=== PATIENT | female | born 1945 | race Caucasian/White ===

== ENCOUNTER 2017-07-06 08:51 | Emergency (ER) | payer OTHER ==
[~2017-07-06] VITALS: Ht 157.5 cm; Wt 89.5 kg
[~2017-07-06 08:51] MED LIST: ARTHROTEC 75 T1 EAC1 PO; BACTRIM DS TAB1 EACH PO; MULTIVITAMINS PO; PRINZIDE 20-251 EACH PO
[2017-07-06] MEDS ORDERED: PRINIVIL20 MG PO (09:04)
[2017-07-06] MEDS ORDERED: CHLORTHALIDONE25 MG PO (09:05)
[2017-07-06] MEDS ORDERED: NORVASC5 MG PO (09:05)
[2017-07-06 09:17] LABS: HEMATOCRIT 38.8 % (37.0-47.0); HEMOGLOBIN 12.8 gm/dL (12.0-15.0); MCH 27.3 pg (26.0-34.0); MCHC 33.1 g/dL (28.0-37.0); MCV 82.5 fL (80.0-100.0); MPV 7.5 fl. (7.2-11.1); NUCLEATED RBCS 0 /100WBC; PLATELET COUNT* 331 thou/uL (150-400); RDW-CV 13.9 % (10.5-14.5)
[2017-07-06 09:32] LABS: ANION GAP 10 mmol/L (7-16); BUN 24 mg/dL (7-18); CALCIUM 9.3 mg/dL (8.5-10.1); CHLORIDE 97 mmol/L (98-107); CO2 27 mmol/L (21-32); CREATININE 0.8 mg/dL (0.6-1.3); GLUCOSE 120 mg/dL (70-99); POTASSIUM 4.1 mmol/L (3.5-5.1); SODIUM 134 mmol/L (136-145)
[2017-07-06 09:37] LABS: ALKALINE PHOSPHATASE 100 U/L (46-116); NT-PRO BRAIN NAT PEPTIDE 231 pg/mL (<300); SGOT 27 U/L (15-37); SGPT 25 U/L (30-65); TOTAL BILIRUBIN 0.3 mg/dL (<0.1-1.0); TOTAL PROTEIN 8.1 g/dL (6.4-8.2); TROPONIN-I LEVEL <0.06 ng/mL (<0.06)
[2017-07-06 09:43] LABS: APTT 27.5 Seconds (25.0-31.3); PROTIME 9.9 Seconds (9.20-11.50)
[2017-07-06 10:26] LABS: ABSOLUTE EOSINOPHILS 0.4 thou/uL (0.0-0.7); ABSOLUTE LYMPHOCYTES 0.6 thou/uL (0.8-5.3); ABSOLUTE MONOCYTES 0.9 thou/uL (0.0-1.2); ABSOLUTE NEUTROPHILS 7.1 thou/uL (1.6-8.1); ATYPICAL LYMPHS 2 %; PLATELET ESTIMATE ADEQUATE
[2017-07-06 11:06] VITALS: BP 153/82
--- NOTE | 2017-07-06 12:15 | EKG ---
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: Omer PALMER : 1945 Requested By: Moshe Montiel Order Number: [id number] MD: Rishi Marshall Measurements Intervals [place] Rate: 89 P: 17 VA: 173 QRS: -5 QRSD: 109 T: 89 QT: 383 QTc: 467 Interpretive Statements Sinus rhythm Probable left atrial enlargement Borderline repolarization abnormality Compared to ECG 08/12/2007 11:11:10 Fusion complex(es) no longer present Electronically Signed On 07-06-2017 12:15:07 WELDER [employer] G[employer] by Rishi Marshall [email or web address] <ELECTRONICALLY SIGNED> By: Rishi Marshall MD, [facility] 07/06/17 1215 1 09 Rishi Marshall MD, [facility] /EPI
== END 2017-07-06 11:08 | disposition home or self-care (01) ==
LOC: M.ERS 08:51
PROVIDERS: Family Medicine
DX: I10 Essential (primary) hypertension (principal); Z98.890 Other specified postprocedural states; Z88.0 Allergy status to penicillin

== ENCOUNTER 2017-10-26 17:32 | Inpatient (IN) | payer OTHER ==
[~2017-10-26] VITALS: Ht 154.9 cm; Wt 92.5 kg
--- NOTE | ~2017-10-26 | PROC ---
[address] [place] [address] PROCEDURE REPORT Name: KELLIE PARDO Room: [address] IN .R.#: [id number] Admission: 10/26/17 Attend Phys: Fernie Parkinson, Discharge: 10/28/17 Date of : 41 Report #: [id number] THIS REPORT FOR: //name// For GI report, please see the Provation report in Perceptive 7 content. By: 0700Medical Records Staff FLACO /JER
[~2017-10-26 17:32] MED LIST changes: +CHLORTHALIDONE25 MG PO; +NORVASC5 MG PO; +PRINIVIL20 MG PO
[2017-10-26 17:35] VITALS: BP 189/100
[2017-10-26 18:27] LABS: HEMATOCRIT 37.8 % (37.0-47.0); HEMOGLOBIN 12.4 gm/dL (12.0-15.0); MCH 27.1 pg (26.0-34.0); MCHC 32.7 g/dL (28.0-37.0); MCV 83.1 fL (80.0-100.0); MPV 8.1 fl. (7.2-11.1); NUCLEATED RBCS 0 /100WBC; PLATELET COUNT* 309 thou/uL (150-400); RBC 4.55 mil/uL (4.20-5.00); RDW-CV 13.6 % (10.5-14.5); WBC 11.6 thou/uL (4.0-11.0)
[2017-10-26 18:31] LABS: ANION GAP 11 mmol/L (7-16); BUN 23 mg/dL (7-18); CALCIUM 9.4 mg/dL (8.5-10.1); CHLORIDE 100 mmol/L (98-107); CO2 26 mmol/L (21-32); CREATININE 0.8 mg/dL (0.6-1.3); GLUCOSE 121 mg/dL (70-99); POTASSIUM 3.7 mmol/L (3.5-5.1); SODIUM 137 mmol/L (136-145)
[2017-10-26 18:38] LABS: APTT 25.9 Seconds (25.0-31.3); PROTIME 10.1 Seconds (9.20-11.50)
[2017-10-26 18:43] LABS: ALBUMIN 3.9 g/dL (3.4-5.0); ALKALINE PHOSPHATASE 80 U/L (46-116); SGOT 20 U/L (15-37); SGPT 19 U/L (30-65); TOTAL BILIRUBIN 0.4 mg/dL (<0.1-1.0); TOTAL PROTEIN 7.7 g/dL (6.4-8.2); TROPONIN-I LEVEL <0.06 ng/mL (<0.06)
[2017-10-26 18:52] LABS: ABSOLUTE LYMPHOCYTES 0.5 thou/uL (0.8-5.3); ABSOLUTE MONOCYTES 0.1 thou/uL (0.0-1.2); PLATELET ESTIMATE ADEQUATE
[2017-10-26 22:23] VITALS: BP 146/77
[2017-10-26 22:35] VITALS: BP 148/81
[2017-10-27 04:00] VITALS: BP 102/45
[2017-10-27 05:04] LABS: HEMATOCRIT 33.2 % (37.0-47.0); HEMOGLOBIN 10.9 gm/dL (12.0-15.0); MCH 27.3 pg (26.0-34.0); MCHC 32.9 g/dL (28.0-37.0); MCV 82.8 fL (80.0-100.0); RBC 4.01 mil/uL (4.20-5.00); RDW-CV 14.1 % (10.5-14.5); WBC 8.4 thou/uL (4.0-11.0)
[2017-10-27 05:32] LABS: ALBUMIN 3.1 g/dL (3.4-5.0); CALCIUM 8.5 mg/dL (8.5-10.1); CREATININE 0.8 mg/dL (0.6-1.3); POTASSIUM 3.7 mmol/L (3.5-5.1); TOTAL BILIRUBIN 0.4 mg/dL (<0.1-1.0)
[2017-10-27 07:30] VITALS: BP 137/58
[2017-10-27 09:21] LABS: URINE BILIRUBIN NEGATIVE (Negative); URINE BLOOD NEGATIVE (Negative); URINE CLARITY CLEAR; URINE COLOR YELLOW; URINE GLUCOSE-RANDOM NEGATIVE (Negative); URINE KETONES 1+ (Negative); URINE LEUKOCYTES-REFLEX NEGATIVE (Negative); URINE NITRITE-REFLEX NEGATIVE (Negative); URINE PROTEIN TRACE (Negative); URINE UROBILINOGEN 0.2 E.U./dl (0.2-1.0)
[2017-10-27 12:00] VITALS: BP 125/62
--- NOTE | 2017-10-27 15:55 | EKG ---
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 Block: Omer MCGARRY : 1945 Requested By: Tina Hanson Order Number: [id number] MD: Jesus Mosqueda Measurements Intervals [place] Rate: 95 P: 39 NM: 178 QRS: -9 QRSD: 103 T: 45 QT: 352 QTc: 443 Interpretive Statements Sinus rhythm Premature atrial complex Probable left atrial enlargement Compared to ECG 07/06/2017 09:12:01 Atrial premature complex(es) now present Electronically Signed On 10-27-2017 15:55:27 CDT by Jesus Mosqueda [email or web address] <ELECTRONICALLY SIGNED> By: Jesus Mosqueda MD, FACC 10/27/17 1555 1740 1740 Jesus Mosqueda MD, [facility] /EPI
[2017-10-27 16:00] VITALS: BP 143/69
[2017-10-27 19:58] VITALS: BP 158/60
[2017-10-28 00:25] VITALS: BP 141/59
[2017-10-28 04:17] VITALS: BP 160/76
[2017-10-28 04:42] VITALS: BP 160/76
[2017-10-28 05:43] LABS: HEMATOCRIT 33.2 % (37.0-47.0); HEMOGLOBIN 10.9 gm/dL (12.0-15.0); MCH 27.5 pg (26.0-34.0); MCHC 32.8 g/dL (28.0-37.0); MPV 8.3 fl. (7.2-11.1); RBC 3.95 mil/uL (4.20-5.00); RDW-CV 14.1 % (10.5-14.5); WBC 8.2 thou/uL (4.0-11.0)
[2017-10-28 06:03] LABS: LIPASE 134 U/L (73-393); TRIGLYCERIDE 70 mg/dL (<150)
[2017-10-28 06:07] LABS: CALCIUM 8.1 mg/dL (8.5-10.1); CREATININE 0.8 mg/dL (0.6-1.3); MAGNESIUM 1.7 mg/dL (1.8-2.4); POTASSIUM 3.3 mmol/L (3.5-5.1); TOTAL BILIRUBIN 0.6 mg/dL (<0.1-1.0); TOTAL PROTEIN 6.1 g/dL (6.4-8.2)
--- NOTE | 2017-10-28 08:22 | CON ---
[address] [address] CONSULTATION Name: KELLIE PARDO Room: [address] IN .R.#: [id number] Admission: 10/26/17 Attend Phys: Fernie Parkinson, Discharge: Date of : 41 Report #: [id number] THIS REPORT FOR: //name// CC: Nadira Parkinson DATE OF SERVICE: 10/27/2017 REASON FOR CONSULT: Hematemesis, evidence of gastric outlet obstruction and elevated lipase. HISTORY OF PRESENT ILLNESS: This is a 72-year-old female with no previous history of pancreatitis who presents with epigastric pain and persistent nausea and vomiting, which started night. The patient reports that she felt that there was blood in her emesis, which prompted her to come to hospital. She has had history of H. pylori in the past and has been treated for. She takes diclofenac as part of her meds. She also reports that she is pretty regular and has daily bowel movement. She has never had any upper and lower endoscopy in the past. She has not had any bowel movements since Saturday. PAST MEDICAL HISTORY: Significant for a history of hypothyroidism, hypertension, gastric bypass surgery, appendectomy, history of NSAID use. ALLERGIES: SIGNIFICANT TO PENICILLIN. MEDICATIONS: Please refer to hospital MAR. SOCIAL HISTORY: The patient denies tobacco or alcohol use. She is . FAMILY HISTORY: Negative for GI malignancy. PHYSICAL EXAMINATION: VITAL SIGNS: Reveals blood pressure of 137/58, respirations 17, pulse 71, temperature 99.1. LUNGS: Clear. CARDIOVASCULAR: Regular. ABDOMEN: Soft, mildly tender to palpation in the epigastric region. Bowel sounds are positive. NG tube in place and attached to the canister wall. NEUROLOGIC: The patient is alert and oriented x 3. LABORATORY DATA: Reveal sodium of 140, potassium 3.7, BUN is 21, creatinine 0.8, glucose 94. AST 16, ALT 16, alkaline phosphatase 65, total bilirubin is 0.4. Lipase is 2125. Albumin is 3.1. WBC is 8.4 with hemoglobin of 10.9 and platelet of 277. IMAGING: CT of abdomen and pelvis was obtained [place]. [place] [address] CONSULTATION Name: KELLIE PARDO Omer Room: [address] IN [facility]#: [id number] Admission: 10/26/17 Attend Phys: Fernie Parkinson, Discharge: Date of : 41 Report #: [id number] significant for distended stomach and retention of fluid in the stomach and distal esophagus. Evidence of previous gastric surgery. There was also cholelithiasis without evidence of cholecystitis and diverticulosis without evidence of diverticulitis. There is a fat containing infraumbilical midline hernia with no evidence of bowel herniation. ASSESSMENT AND PLAN: The patient with pancreatitis of unknown etiology who also has had gastric distention and retention. Nasogastric initially has pulled out 800 mL of dark color coffee-ground aspirate. We will check lipase and consider upper endoscopy tomorrow. Meanwhile, we will continue nasogastric to intermittent suction and allow the patient to have ice chips. I will check lipase in a.m. <ELECTRONICALLY SIGNED> By: Alyec Negron MD 10/28/17 0822 0930 2230Alyce Negron MD /nt
[2017-10-28 09:15] VITALS: BP 166/69
[2017-10-28 12:09] VITALS: BP 150/98
[2017-10-28] MEDS ORDERED: REGLAN 5 MG TAB5 MG PO (14:11)
[2017-10-28 14:49] VITALS: BP 150/98
== END 2017-10-28 15:30 | disposition home or self-care (01) | DRG 377 ==
LOC: M.ERS 17:32 → M.TBA-ER 21:02 → M.2W 21:02
PROVIDERS: Emergency Medicine; Internal Medicine Gastroenterology; Personal Emergency Response Attendant; ADMIT Family Medicine
PROC: 0DJ08ZZ Inspection of Upper Intestinal Tract, Via Natural or Artificial Opening Endoscopic (ICD-10-PCS; principal; 2017-10-28)
DX: K92.2 Gastrointestinal hemorrhage, unspecified (principal); K85.90 Acute pancreatitis without necrosis or infection, unspecified; E03.9 Hypothyroidism, unspecified; M19.90 Unspecified osteoarthritis, unspecified site; T39.395A Adverse effect of other nonsteroidal anti-inflammatory drugs [NSAID], initial encounter; I10 Essential (primary) hypertension; K80.20 Calculus of gallbladder without cholecystitis without obstruction; K44.9 Diaphragmatic hernia without obstruction or gangrene; D64.9 Anemia, unspecified; Z90.49 Acquired absence of other specified parts of digestive tract; Z98.84 Bariatric surgery status; Z88.0 Allergy status to penicillin; Z79.899 Other long term (current) drug therapy; Y92.89 Other specified places as the place of occurrence of the external cause

== ENCOUNTER → 2018-04-09 | Outpatient (CLI) | payer OTHER ==
[~2018-04-09] MED LIST changes: +REGLAN 5 MG TAB5 MG PO
== END ==
LOC: M.ULTRA 14:07
DX: M71.22 Synovial cyst of popliteal space [Baker], left knee (principal); M79.89 Other specified soft tissue disorders

== ENCOUNTER 2018-06-16 08:05 | Inpatient (IN) | payer OTHER ==
[2018-06-05 09:04] LABS: ABSOLUTE BASOPHILS 0.1 thou/uL (0.0-0.2); ABSOLUTE EOSINOPHILS 0.2 thou/uL (0.0-0.7); ABSOLUTE LYMPHOCYTES 0.9 thou/uL (0.8-5.3); ABSOLUTE MONOCYTES 0.3 thou/uL (0.0-1.2); ABSOLUTE NEUTROPHILS 4.7 thou/uL (1.6-8.1); EOSINOPHILS 3.6 %; HEMATOCRIT 38.1 % (37.0-47.0); HEMOGLOBIN 12.3 gm/dL (12.0-15.0); LYMPHOCYTES 14.9 %; MCH 26.8 pg (26.0-34.0); MCHC 32.3 g/dL (28.0-37.0); MCV 82.9 fL (80.0-100.0); MONOCYTES 5.5 %; MPV 7.7 fl. (7.2-11.1); NUCLEATED RBCS 0 /100WBC; PLATELET COUNT* 333 thou/uL (150-400); RDW-CV 14.3 % (10.5-14.5); WBC 6.2 thou/uL (4.0-11.0)
[2018-06-05 09:10] LABS: APTT 26.4 Seconds (25.0-31.3); PROTIME 10.1 Seconds (9.20-11.50)
[2018-06-05 09:15] LABS: CALCIUM 9.3 mg/dL (8.5-10.1); CREATININE 0.9 mg/dL (0.6-1.3); POTASSIUM 4.1 mmol/L (3.5-5.1); TOTAL BILIRUBIN 0.4 mg/dL (<0.1-1.0); TOTAL PROTEIN 7.7 g/dL (6.4-8.2)
[2018-06-05 11:10] LABS: ESR (SEDRATE) 10 mm/hr (0-30)
--- NOTE | 2018-06-05 13:47 | EKG ---
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
[2018-06-05 21:06] LABS: GLYCOHEMOGLOBIN (HGB A1C) 5.5 % (4.8-5.6)
[~2018-06-16] VITALS: Ht 157.5 cm; Wt 88.0 kg
[~2018-06-16 08:05] MED LIST changes: +DICLOFENAC SODI75 MG PO; +SYNTHROID25 MC1 PO
[2018-06-16 08:35] VITALS: BP 141/71
[2018-06-16 15:11] VITALS: BP 132/65
[2018-06-16 16:23] LABS: HEMATOCRIT 33.2 % (37.0-47.0); HEMOGLOBIN 10.5 gm/dL (12.0-15.0); MCH 26.3 pg (26.0-34.0); MCHC 31.8 g/dL (28.0-37.0); MCV 82.8 fL (80.0-100.0); MPV 7.7 fl. (7.2-11.1); NUCLEATED RBCS 0 /100WBC; PLATELET COUNT* 308 thou/uL (150-400); RDW-CV 14.7 % (10.5-14.5); WBC 13.6 thou/uL (4.0-11.0)
[2018-06-16 16:33] LABS: ALBUMIN 3.3 g/dL (3.4-5.0); CALCIUM 8.7 mg/dL (8.5-10.1); CREATININE 0.9 mg/dL (0.6-1.3); MAGNESIUM 1.7 mg/dL (1.8-2.4); POTASSIUM 3.8 mmol/L (3.5-5.1); TOTAL BILIRUBIN 0.4 mg/dL (<0.1-1.0); TOTAL PROTEIN 6.7 g/dL (6.4-8.2)
[2018-06-16 16:46] LABS: ABSOLUTE LYMPHOCYTES 0.3 thou/uL (0.8-5.3); ABSOLUTE MONOCYTES 0.1 thou/uL (0.0-1.2); ABSOLUTE NEUTROPHILS 13.2 thou/uL (1.6-8.1); ATYPICAL LYMPHS 1 %; PLATELET ESTIMATE ADEQUATE
[2018-06-16 17:19] VITALS: BP 127/66
--- NOTE | 2018-06-16 18:47 | NUR ---
PT ARRIVED BY BED TO UNIT @ 1435. DENIES PAIN. INDICATED NAUSEA AND GIVEN IV ZOFRAN PER ORDER. PT HAVE PROVENA DRESSING IN PLACE ON LEFT KNEE-NO DRAINAGE NOTED. BELLA HOSE ON BILAT. POLAR PACK IN PLACE. SCDS IN USE. HOB ELEVATED. NIETO CATHETER IN PLACE. OXYGEN @ 2 L/NC. IVF INFUSING @ 75 MLS/HR. PT ABLE TO TOLERATE FULL LIQUIDS FOR DINNER. HOURLY ROUNDS MAINTAINED. WILL USE CALL LIGHT FOR ASSISTANCE.
[2018-06-16 20:30] VITALS: BP 135/78
[2018-06-17 04:00] VITALS: BP 135/78
[2018-06-17 04:30] LABS: HEMATOCRIT 27.3 % (37.0-47.0)
--- NOTE | 2018-06-17 06:26 | NUR ---
PATIENT HAS SLEPT WELL THROUGHOUT THE NIGHT. VSS ON 2L 02 VIA NASAL CANNULA. PAIN CONTROLLED WITH ORAL PAIN MEDICATION AND CHARTED. NIETO CATHETER TO DEPENDENT DRAINAGE WITH YELLOW URINE OUTPUT. DRESSING TO LEFT LEG IS C/D/I, POLAR CARE AND SCD'S IN PLACE. PROVENA WOUND VAC IS IN PLACE WITH MINIMAL DRAINAGE. OK WITH FROM [facility]THO TO START CPM TODAY AFTER PHYSICAL THERAPY AND ADJUST PATIENT IS ABLE TO TOLERATE. PATIENT INSTRUCTED TO USE CALL LIGHT WHEN NEEDING ASSISTANCE. HOURLY ROUNDS MADE. WILL CONTINUE WITH PLAN OF CARE AND NURSING TO MONITOR.
[2018-06-17 08:15] VITALS: BP 98/53
--- NOTE | 2018-06-17 15:30 | NUR ---
SPOKE WITH PT.AND SON,YE,AT BEDSIDE. PT.LIVES ALONE. SHE IS NORMALLY INDEPENDENT. SHE HAS HAD A LOT OF PAIN IN L LEG AND KNEE SINCE APR. SHE HAS STARTED USING A WC AT HOME DUE TO TOO PAINFUL TO WALK. DURING SURGERY THEY FOUND A FX TIBIA-CHRONIC AND SHE ALSO HAD AN ORIF OF HER L TIBIA. SHE ALSO HAS A WALKER AND RAMP. SON AND HIS PLAN TO STAY WITH PT.NIGHT AND DAY FOR THE FIRST 3-4 DAYS. SHE WOULD LIKE TO USE [facility] FOR HOME HEALTH. SHE THINKS SHE USED THEM LAST TIME. CM WILL MAKE REFERRAL.
[2018-06-17 15:36] VITALS: BP 101/43
--- NOTE | 2018-06-17 17:08 | NUR ---
PT REMAINED ALERT AND ORIENTED THIS SHIFT. PT WORKED WITH THERAPY AND WAS HAVING DIFFICULTY WITH UNDERSTANDING TOE TOUCH WEIGHT BEARING. NIETO REMOVED. PT CAPNO REMOVED. PT WORKED WITH CPM MACHINE. PAIN MEDS GIVEN ORDERED. FALL RISK PRECAUTIONS IN PLACE. HOURLY ROUNDING COMPLETED. WILL CONTINUE TO MONITOR.
[2018-06-17 20:00] VITALS: BP 112/54
--- NOTE | 2018-06-18 03:40 | NUR ---
PATIENT NOT VOIDING. PATIENT BLADDER SCANNED AND SHOWED ONLY 188ML OF URINE IN BLADDER AND PATIENT HAD NO URGE TO URINATE. PATIENT GIVEN 250ML NORMAL SALINE BOLUS AT THIS TIME. WILL CONTINUE TO MONITOR.
[2018-06-18 04:06] LABS: HEMATOCRIT 23.2 % (37.0-47.0); HEMOGLOBIN 7.9 gm/dL (12.0-15.0); MCHC 34.1 g/dL (28.0-37.0); MCV 82.2 fL (80.0-100.0); MPV 7.9 fl. (7.2-11.1); RBC 2.83 mil/uL (4.20-5.00); RDW-CV 14.6 % (10.5-14.5); WBC 8.4 thou/uL (4.0-11.0)
[2018-06-18 04:25] LABS: ALBUMIN 2.6 g/dL (3.4-5.0); CALCIUM 7.9 mg/dL (8.5-10.1); CREATININE 1.4 mg/dL (0.6-1.3); POTASSIUM 4.5 mmol/L (3.5-5.1); TOTAL BILIRUBIN 0.3 mg/dL (<0.1-1.0); TOTAL PROTEIN 5.4 g/dL (6.4-8.2)
[2018-06-18 04:46] LABS: % SATURATION 7 % (20-39); IRON 10 ug/dL (50-175)
--- NOTE | 2018-06-18 07:02 | NUR ---
PATIENT HAS SLEPT WELL THROUGHOUT THE NIGHT. VSS ON RA. PAIN WELL CONTROLLED. MEDICATIONS GIVEN ORDERED AND CHARTED. DRESSING TO LEFT LEG IS C/D/I, BELLA DE GUZMAN, [facility] CARE, SCD'S IN PLACE. PROVENA WOUND VAC IN PLACE WITH MINIMAL DRAINAGE. PATIENT UP WITH ASSIST X 1-2 WITH [facility] [facility] [place] PATIENT DID URINATE 250CC OF YELLOW URINE THIS AM. IV IN LEFT WRIST-SL. PATIENT INSTRUCTED TO USE CALL LIGHT WHEN NEEDING ASSISTANCE. HOURLY ROUNDS MADE. WILL CONTINUE WITH PLAN OF CARE AND NURSING TO MONITOR.
--- NOTE | 2018-06-18 07:07 | OP ---
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 POSTOPERATIVE DIAGNOSES: 1. 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 2. Proximal tibial shaft fracture, closed and likely chronic. PROCEDURE: 1. Left total knee arthroplasty with intramedullary stems, complex. 2. Open reduction and internal fixation of left tibia shaft fracture. SURGEON: Jeff Tee DO JAPANESE TUTOR: Alexander Lamas DO SECOND MEDICAL FRONT DESK SPECIALIST: Mando Flores DO ESTIMATED BLOOD LOSS: 200 mL. TOURNIQUET TIME: Approximately 90 total minutes. ANTIBIOTICS: Clindamycin 600 mg IV preoperatively. ORTHOPEDIC IMPLANTS: Maxwell revision total knee system with stems. 1. Size E femur with 18 mm x 130 mm femoral stem. 2. Size 5 tibial base plate with 14 mm x 130 mm tibial stem, 29 mm patella, 12 mm highly constrained posterior stabilized polyethylene spacer. 3. Two bags of Palacos bone cement with gentamicin. 4. A 6-hole 3.5 recon plate with appropriate length screws, both locking and nonlocking. ANESTHESIA: General. DRAINS: None. SPECIMEN REMOVED: [place] [address] OPERATIVE REPORT Name: KELLIE PARDO Room: [address] IN [facility].#: [id number] Admission: 06/16/18 Attend Phys: Monster Natarajan Discharge: Date of : 41 Report #: [id number] CONDITION: The patient is stable to PACU. INDICATIONS: The patient is a very pleasant 73-year-old female seen in my clinic regarding left knee pain she had for quite some time. She unfortunately failed conservative treatment. X-rays were obtained demonstrating severe end-stage degenerative joint disease with severe valgus deformity. This was somewhat correctable in clinic. She had x-rays done in the Emergency Room on 04/09/2018 confirming again severe DJD. Due to the severity of her arthritis as well as the pain interfering with her quality of life and activities of daily living, I have recommended left total knee arthroplasty with intramedullary stems due to her valgus deformity. I discussed procedure, risks, benefits, complications, indications in detail with her. Risks discussed include, but not limited to, infection, neurovascular injury, continued or worsened pain, need for further surgery, DVT, PE and anesthesia complications. She expressed understanding and wished to proceed with surgery. DESCRIPTION OF PROCEDURE: After consent was obtained, the patient was taken to the operative suite and placed in the supine position on the operating room table. She was given benefit of general anesthesia. A well-padded tourniquet was placed on left upper thigh. Left leg was sterilely prepped and draped in usual fashion. Preop timeout was obtained to confirm the correct patient, procedure and operative site. Surgery began with elevation of the tourniquet to 300 mmHg. Standard anterior knee midline incision was made. Sharp dissection was taken down to the level of capsule. A new knife was used and a medial parapatellar arthrotomy was performed. She had a normal appearing joint effusion. She did have severe eburnation throughout all 3 compartments, most severe in the lateral compartment with osteophytes throughout. We then began to prepare our femur. A femoral drill was used to open the femoral canal. T-handle and intramedullary mat were placed measuring a 6-degree valgus cut. The distal femoral cut was made through the captured block. This cut was fairly minimal. Attention was then turned to the tibia. It was at this time, we noticed some excess play in the proximal tibia. This was around the proximal shaft region and it appeared that there was a fracture in this area. We did not ever feel anything that was concerning for fracture. I went ahead and dissected down medially over the area of play and it was noted she did have a transverse fracture in this area. This was quite scarred in and there was a callus tissue over it. There was no hematoma in this area. Apparently, this was a chronic injury unfortunately. We had already made our femur cuts and elected to proceed with ORIF of this as well as completion of the total knee. We went ahead and placed a 3.5 recon small frag plate over the fracture site for stabilization. Two cortical screws were placed of appropriate length. This did compress the fracture site. We then placed 2 more locking screws, both proximal and distal to this. This did hold our fracture nicely. I went ahead and brought the C-arm in at this time to confirm this was what we were dealing with. Again, on C-arm, it was apparent this was a chronic fracture [address] [address] OPERATIVE REPORT Name: KELLIE PARDO Room: [address]#: [id number] Admission: 06/16/18 Attend Phys: Monster Natarajan Discharge: Date of : 41 Report #: [id number] as there was some callus around this area. We then went ahead and prepared our tibia. The intramedullary guide was placed. Reaming was progressed up to a size 14. This was quite solid. We then used the cutting guide measuring a 10 mm cut off the high medial side. This just barely ____ and I did not feel we ____ at this time. Once this was removed, the knee was taken through extension, 10 block was used to ensure adequate resection. The knee was again flexed. AP sizer was placed on distal femur. This measured a size E. The size E 4-in-1 cutting block was then utilized in approximately 5 degrees of external rotation, the cuts were made. The proximal tibia was again exposed and with our size 14 reamer, we measured the proximal tibia to be a size 5. Size 5 tibial trial was then pinned in place at appropriate rotation. Opening drill was utilized. We went ahead with similar trial tibia at this point, this was impacted in place. Attention was then returned to the femur and sequential reaming was performed up to size 18. Box cut was made. The femoral trial was composed size E with 18 x 130 mm stem. This was impacted in place, had good fit. We went ahead and trial reduced with a size 12 spacer. This gave us great range of motion. She was actually fairly well balanced. Her MCL was still intact and her range of motion was full with this construct. The patella was then everted. Posterior patellar cut was made using freehand technique, this measured size 29. Three peg holes were drilled, size 29 button was placed. Knee was taken through range of motion and the patella did track well. I went ahead and obtained intraoperative x-ray at this time with the trials in and noting good position of all hardware and good reduction of the fracture. The trial components were then removed. The knee was thoroughly irrigated with pulsatile lavage, dried with a clean lap sponge. Cement was mixed. Final components were constructed on the backtable and then cement was placed on the components and bone. These were impacted in place. Excess cement was removed. Size 12 spacer was placed. Knee was taken through extension. Axial compression was applied until the cement hardened. Once the cement hardened, trial reduction was performed and a final size 12 spacer was chosen. This was highly constrained and the final size 12 spacer was placed on a clean tibial tray, locked in place with locking screw at appropriate torque. Knee was taken through final range of motion. She had good flexion, extension with good stability with varus valgus testing, good patellar tracking. The fracture did appear to be solidly fixated at this point. The wound was then thoroughly irrigated with pulsatile lavage. Ortho cocktail was injected. Tourniquet let to deflate. Hemostasis achieved with electrocautery and direct pressure. Capsule tissue was then closed with #1 Vicryl in a [id number] fashion. Subcutaneous tissue was closed with a 2-0 Vicryl in interrupted fashion followed by ger on the skin with a Prevena VAC dressing. She was then transferred to the recovery room in stable condition. She did tolerate the procedure well without complications. All needle and sponge counts were correct x 2 at the end of the procedure. I did update her family intraoperatively of the finding of the fracture. She [address] [address] OPERATIVE REPORT Name: KELLIE PARDO Room: [address] IN M.R.#: [id number] Admission: 06/16/18 Attend Phys: Monster Natarajan Discharge: Date of : 41 Report #: [id number] will be admitted postop for pain control. Unfortunately, she will have to be toe touch weightbearing with gentle range of motion of the knee should be fine. We will give appropriate DVT prophylaxis and analgesia p.r.n. I expect greater than 2 midnights' stay. <ELECTRONICALLY SIGNED> By: Adria Tucker DO 06/18/18 0707 1335 1515Dageno Tee DO /cr
[2018-06-18 09:00] VITALS: BP 118/50
--- NOTE | 2018-06-18 16:50 | NUR ---
ASSUMED CARE OF PATIENT AT APPROX 0720. ALERT AND OREINTED X4. ASSESSMENT COMPLETED AND CHARTED. VSS ON ROOM AIR. FLUIDS AND ANTIBIOTICS INFUSED ORDERED, SALINE LOCKED AFTERWARDS. NO COMPLAINTS OF SOA THIS SHIFT. PAIN AND NAUSEA HAVE BEEN MANAGED WITH MEDICATIONS. PATIENT HAS NOT HAS A BM IN A FEW DAYS AND IS CONCERNED. NEW MEDICATIONS ADDED TO STIMULATE BM BUT NO SUCCESS. PATIENT WOORKED WELL WITH THERAPIES AND IS PROGRESSING TOWARD GOALS. BULKY DRESSING AND HEMAVAC REMOVED THIS AM. FALL PRECAUTIONS IN PLACE, CALL LIGHT WITHIN REACH, NURSING WILL CONTINUE TO MONITOR.
--- NOTE | 2018-06-18 17:16 | NUR ---
[facility] CAME TO VISIT PT.TODAY. SHE SAID THEY CAN ACCEPT PT.TO A SKILLED BED PENDING INSURANCE AUTHORIZAION. PT.AWARE.
[2018-06-18 20:30] VITALS: BP 114/56
[2018-06-18 23:54] VITALS: BP 93/44
[2018-06-19 04:33] LABS: HEMATOCRIT 24.1 % (37.0-47.0); HEMOGLOBIN 7.9 gm/dL (12.0-15.0); MCH 27.2 pg (26.0-34.0); MCHC 32.9 g/dL (28.0-37.0); MCV 82.8 fL (80.0-100.0); MPV 8.1 fl. (7.2-11.1); RBC 2.91 mil/uL (4.20-5.00); RDW-CV 14.4 % (10.5-14.5); WBC 13.6 thou/uL (4.0-11.0)
[2018-06-19 04:37] LABS: CALCIUM 7.9 mg/dL (8.5-10.1); CREATININE 1.2 mg/dL (0.6-1.3); POTASSIUM 4.6 mmol/L (3.5-5.1)
--- NOTE | 2018-06-19 05:08 | NUR ---
PATIENT HAS SLEPT WELL THROUGHOUT THE NIGHT. VSS ON RA. PAIN WELL CONTROLLED. MEDICATIONS GIVEN ORDERED AND CHARTED. PATIENT [place] 1 [place] [facility] [place]ESSING TO LEFT LEG IS C/D/I, AND PROVENA WOUND VAC IN PLACE. POLAR CARE, SCD'S AND BELLA HOSE IN PLACE. IV IN LEFT WRIST-SL. PATIENT REMAINS TTWB. PATIENT INSTRUCTED TO USE CALL LIGHT WHEN NEEDING ASSISTANCE. HOURLY ROUNDS MADE. WILL CONTINUE WITH PLAN OF CARE AND NURSING TO MONITOR.
[2018-06-19 07:20] VITALS: BP 116/46
[2018-06-19 09:55] VITALS: BP 116/46
[2018-06-19] MEDS ORDERED: OXYCODONE HCL 55 MG PO (10:17)
[2018-06-19] MEDS ORDERED: NORCO 5-325 TA1 EACH PO (10:17)
[2018-06-19] MEDS ORDERED: ELIQUIS2.5 MG PO (10:18)
[2018-06-19] MEDS ORDERED: MILK OF MA2400 MG/10 PO (10:23)
[2018-06-19] MEDS ORDERED: SENNA PLUS TAB1 EACH PO (10:23)
[2018-06-19] MEDS ORDERED: PROTONIX40 M2 PO (10:28)
--- NOTE | 2018-06-19 14:48 | NUR ---
[facility] CALLED AND HAS INSURANCE AUTH FOR PT.TO GO TO THEIR FACILITY FOR A SKILLED STAY. THEIR WC VAN CAN PICK HER UP AT [phone]. NOTIFIED PT. SHE IS WORRIED ABOUT HAVING A BM BEFORE SHE LEAVES. NURSING AWARE. FAXED DISCHARGE SUMMARY AND ORTHO DISCHARGE ORDERS TO [id number]. CHART COPIED TO GO WITH PT. NURSING TO CALL REPORT.
--- NOTE | 2018-06-19 17:48 | NUR ---
ASSUMED CARE OF PATIENT AFTER AT 0730. ALERT AND OREINTED X4. ASSESSMENT COMPLETED AND CHARTED. VSS ON ROOM AIR. NO COMPLAINTS OF SOA. SOME COMPLAINTS OF NAUSEA BUT NO MEDICATION REQUIRED. PAIN WAS MINIMAL AND MANAGED WITH ORAL MEDICATION. PATIENT WORKED WELL WITH THERAPIES TODAY AND PROGRESSED TOWARD GOALS. PATIENT DISCHARGED TO REHAB FACILITY AT 1715 WITH ALL PERSONAL BELONGINGS, DISCHARGE PACKET AND PRESCRIPTIONS.
== END 2018-06-19 17:15 | DRG 470 ==
LOC: M.SUR 08:05 → M.PRE 09:56 → EDSTATUS 10:22 → M.SUR 10:26 → M.ORTHSURG 13:41 → M.PRE 14:16 → M.ORTHSURG 06-19 17:15
PROVIDERS: Family Medicine; Orthopaedic Surgery; ADMIT Internal Medicine
PROC: 0QSH04Z Reposition Left Tibia with Internal Fixation Device, Open Approach (ICD-10-PCS; principal; 2018-06-16)
PROC: 0SRD0J9 Replacement of Left Knee Joint with Synthetic Substitute, Cemented, Open Approach (ICD-10-PCS; principal; 2018-06-16)
DX: M17.12 Unilateral primary osteoarthritis, left knee (principal); M84.462A Pathological fracture, left tibia, initial encounter for fracture; N17.9 Acute kidney failure, unspecified; E44.1 Mild protein-calorie malnutrition; Z96.651 Presence of right artificial knee joint; E03.9 Hypothyroidism, unspecified; N18.3 Chronic kidney disease, stage 3 (moderate); I12.9 Hypertensive chronic kidney disease with stage 1 through stage 4 chronic kidney disease, or unspecified chronic kidney disease; D63.8 Anemia in other chronic diseases classified elsewhere; E61.1 Iron deficiency; K59.00 Constipation, unspecified; Z79.899 Other long term (current) drug therapy; Z88.0 Allergy status to penicillin; Z90.49 Acquired absence of other specified parts of digestive tract; Z98.41 Cataract extraction status, right eye; Z68.35 Body mass index [BMI] 35.0-35.9, adult